=== PATIENT | female | born 1950 | race American Indian/Alaskan Native ===

== ENCOUNTER 2017-03-24 13:41 | Outpatient (CLI) | payer BC ==
[2017-03-24 14:48] LABS: Blood Urea Nitrogen 14 mg/dL (7-17)
--- NOTE | 2017-03-24 17:04 | Cat Scan Report ---
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 FINDINGS: Nonspecific calcified mass in lower right breast may correspond with history of malignant neoplasm. There is overlying focal skin thickening. Nonspecific smaller calcifications otherwise scattered in each breast. Cardiac silhouette size slightly enlarged without pericardial effusion. Normal caliber thoracic aorta with mild to moderate calcified atherosclerotic plaque. Normal-appearing esophagus. No hilar mass or mediastinal adenopathy. Degenerative change in the regional skeleton. No evidence of acute fracture or focal osseous lesion. No pneumothorax, pleural effusion, or focal pulmonary consolidation. No definite lung mass or nodule. The visible pulmonary arteries are diffusely patent. IMPRESSION: Right breast mass with overlying skin thickening may correspond with history of malignant neoplasm Slight cardiomegaly
--- NOTE | 2017-03-24 17:16 | Cat Scan Report ---
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 PRIORS: Chest CT 03/24/2017 FINDINGS: Nonspecific approximately 4 cm calcified right breast mass with overlying skin thickening may correspond with history of malignant neoplasm. Normal-appearing liver, gallbladder, adrenals, pancreas, and spleen. Intact normal caliber abdominal aorta and IVC. Nonspecific, smoothly marginated, low density bilateral renal lesions may be cysts. No renal calculus or hydronephrosis. No ureteral calculus or distention. Intact abdominal wall. No retroperitoneal mass or adenopathy. No evidence of mesenteric mass. Normal-appearing stomach and duodenum. No small bowel distention in the abdomen and pelvis. No pelvic free fluid. Normal-appearing urinary bladder and adnexa. Uterus not visualized. Slight prominence of stool from transverse colon to rectum may reflect constipation. Slight sigmoid diverticulosis without acute inflammation. Slight diverticulosis in ascending colon. No gross ascites, free air or colonic distention. Normal-appearing cecum, terminal ileum, and appendix. IMPRESSION: No evidence of mass or adenopathy in the abdomen and pelvis Calcified right breast mass with overlying skin thickening may correspond with history of malignant neoplasm Prominent stool may reflect constipation Slight scattered diverticulosis.
== END 2017-03-24 13:42 | disposition home or self-care (01) ==
LOC: CT 13:41
PROVIDERS: ATTEND Surgery
DX: C50.511 Malignant neoplasm of lower-outer quadrant of right female breast (principal); I51.7 Cardiomegaly; K57.30 Diverticulosis of large intestine without perforation or abscess without bleeding; I70.0 Atherosclerosis of aorta
CPT/HCPCS: 36415; 71270; 74178; 82565; 84520; Q9967